=== PATIENT | female | born 1990 | race Caucasian/White ===

== ENCOUNTER 2023-03-26 02:28 | Inpatient (IN) | payer OTHER ==
[~2023-03-26] VITALS: Ht 170.2 cm; Wt 61.2 kg
[2023-03-26 04:10] VITALS: BP 110/88
--- NOTE | 2023-03-26 04:15 | PR ---
[facility] [place] [facility] [address] [facility] [place], [place] [address] Signed Progress Notes IP Datetime Report Generated by CPN: 03/26/2023 04:15 PROGRESS NOTES: [id number] Impression: Normal Progression of Labor Procedures: Sterile Vag Exam Plan: Continue Present Management VITAL SIGNS: [id number] Vital Signs: Reviewed; Within Normal Limits EXAM: [id number] Dilatation: 8.0 Effacement: 100 Station: 1 Contractions: q 3 min MEMBRANES: [id number] Amniotic Fluid Color: Clear Comments: Still not too comfortable but progressing well. FETUS A: [id number] FHR Baseline: 140 Variability: Moderate 6-25bpm Accelerations: 15X15 Decelerations: None FHR Category: Category I Presentation: Vertex Comments on Fetus A: no evidence metabolic acidosis FETUS B: [id number] Signing Physician: Alba Patel MD Copies: ~ *Electronically Signed* 03/26/23 0415 ALBA PATEL MD PATIENT NAME: LARISSA NEWSOME PROGRESS NOTE DATE OF : 89 PHYSICIAN: ALBA PATEL MD RPT #: [id number] REPORT IS CONFIDENTIAL AND NOT TO BE RELEASED WITHOUT AUTHORIZATION
--- NOTE | 2023-03-26 14:11 | NUR ---
PT ALERT, ORIENTED AND CRING FOR HER SON WITH HER LEVAR. ALL SEEMS WELL, VERY EXCITED! GAVE BLESSING, STUFFED ANIMAL WILL FOLLOW
--- NOTE | 2023-03-27 07:02 | PR ---
[facility] [address] [facility] [place], [place] [address] Signed PP Progress Notes Datetime Report Generated by CPN: 03/27/2023 07:02 SUBJECTIVE: [id number] Pain: Within Normal Limits Vital Signs: [id number] Vital Signs: Reviewed; Within Normal Limits Cardiovascular: Not Done Respiratory: Not Done Abdomen/Uterus: Abnormal Lochia: Normal Vulva/Perineum: Not Done Breasts: Not Done CVA Tenderness: Not Done Extremities: Normal Incision: Not Applicable Progress: Normal Exam Comments: Fundus firm, NT @ U-2. H/H 10.6/32.1, WBC 9.4, plat 163k IMPRESSION/PLAN/PROCEDURES: [id number] Impression: Normal Progression Plan: Discharge Procedures: None Progress Notes: Doing well. She would like discharge today if possible. Signing Physician: Alba Patel MD Copies: ~ *Electronically Signed* 03/27/23701 ALBA PATEL MD PATIENT NAME: LARISSA NEWSOME PROGRESS NOTE DATE OF : 89 PHYSICIAN: ALBA PATEL MD RPT #: [id number] REPORT IS CONFIDENTIAL AND NOT TO BE RELEASED WITHOUT AUTHORIZATION
== END 2023-03-27 16:55 | disposition home or self-care (01) | DRG 807 ==
LOC: FBCO 02:28 → FBC 02:41
PROVIDERS: ADMIT Obstetrics & Gynecology; ATTEND Obstetrics & Gynecology
PROC: 10E0XZZ Delivery of Products of Conception, External Approach (ICD-10-PCS; principal; 2023-03-26)
PROC: 0KQM0ZZ Repair Perineum Muscle, Open Approach (ICD-10-PCS; 2023-03-26)
PROC: 10D17Z9 Manual Extraction of Products of Conception, Retained, Via Natural or Artificial Opening (ICD-10-PCS; 2023-03-26)
PROC: 00HU33Z Insertion of Infusion Device into Spinal Canal, Percutaneous Approach (ICD-10-PCS; 2023-03-26)
PROC: 3E0R3BZ Introduction of Anesthetic Agent into Spinal Canal, Percutaneous Approach (ICD-10-PCS; 2023-03-26)
DX: O66.0 Obstructed labor due to shoulder dystocia (principal); Z37.0 Single live birth; O70.1 Second degree perineal laceration during delivery; O99.824 Streptococcus B carrier state complicating childbirth; Z86.16 Personal history of COVID-19; Z3A.39 39 weeks gestation of pregnancy; Z67.20 Type B blood, Rh positive; Z88.0 Allergy status to penicillin; Z88.1 Allergy status to other antibiotic agents; Z79.82 Long term (current) use of aspirin
CPT/HCPCS: 01960; 36415; 85027; 86850; 86900; 86901; A9270; J0690; J2590; J2795; J3010; J7121

== ENCOUNTER 2024-12-24 14:08 | Emergency (ER) | payer OTHER ==
[~2024-12-24] VITALS: Ht 170.2 cm; Wt 58.8 kg
[2024-12-24] MEDS ORDERED: ONDANSETRON HCL4 MG PO (15:02)
[2024-12-24] MEDS ORDERED: LACTATED RINGER'S 1,000 ML IV ONE (19:30)
[2024-12-24] MEDS ORDERED: diphenhydrAMINE HCL 50 MG/ML VIAL IV ONE (19:30)
[2024-12-24] MEDS ORDERED: KETOROLAC TROMETHAMINE 30 MG/ML VIAL IV ONE (19:30)
[2024-12-24] MEDS ORDERED: PROCHLORPERAZINE EDISYLATE 10 MG/2 ML VIAL IV ONE (19:30)
[2024-12-24 19:31] LABS: BILIRUBIN, URINE NEGATIVE (negative); BLOOD/HGB, URINE NEGATIVE (Negative); KETONE, URINE NEGATIVE (Negative); LEUK ESTERASE, URINE NEGATIVE (negative); NITRITE, URINE NEGATIVE (negative)
[2024-12-24 19:45] LABS: BASOPHILS 0.4 % (0-2); EOSINOPHILS 0.6 % (0-6); HEMATOCRIT 37.7 % (35.0-50.0); HEMOGLOBIN 12.8 g/dL (12.0-18.0); LYMPHOCYTES 25.4 % (24-44); MCH 29.7 (27-36); MCV 87.2 fl (81-99); NEUTROPHILS 66.6 % (39-80); PLATELET COUNT 199 K/uL (140-440); RBC 4.32 M/ul (4.3-5.7); RDW 13.9 (10.5-15.0)
[2024-12-24 20:01] LABS: ALBUMIN/GLOBULIN RATIO 1.43 (1.1-2.4); ANION GAP 12.5 (7-21); BILIRUBIN, TOTAL 0.5 mg/dL (0.2-1.0); CALCIUM 8.6 mg/dL (8.5-10.1); CREATININE, SERUM 0.55 mg/dL (0.55-1.02); POTASSIUM 3.5 mmol/L (3.5-5.1); PROTEIN, TOTAL 6.8 g/dL (6.4-8.2)
[2024-12-24 20:50] VITALS: BP 95/60
== END 2024-12-24 20:50 | disposition home or self-care (01) ==
LOC: ED 14:08
PROVIDERS: Internal Medicine
DX: G43.909 Migraine, unspecified, not intractable, without status migrainosus (principal); Z88.0 Allergy status to penicillin; Z79.899 Other long term (current) drug therapy
CPT/HCPCS: 36415; 80053; 81003; 84703; 85025; 96374; 96375; 99284-25; J0780; J1200; J1885; J7121